=== PATIENT | male | born 1965 | race Hispanic/Latino ===

== ENCOUNTER 2018-08-30 20:23 | Emergency (ER) | payer SELFPAY ==
[2018-08-30 20:50] VITALS: TEMP 98; O2SAT 98
[2018-08-30] MEDS ORDERED: CHLORHEXIDINE GLUCONATE 4 % 15 ML UD TOP ONE ×2 (20:53→22:21)
[2018-08-30] MEDS ORDERED: TETANUS-DIPHTHERIA TOXOIDS (TD 1 EA SYG IM ONE (21:03)
[2018-08-30] MEDS ORDERED: LIDOCAINE 1% 10 ML VIAL INJ ONE (21:21)
--- NOTE | 2018-08-30 21:59 | ED.PDOC ---
History of Present Illness - General Chief Complaint: Laceration Stated Complaint: laceration to left hand Time Seen by Provider: 08/30/18 20:56 Source: patient Exam Limitations: no limitations - History of Present Illness Initial Comments: CUT WITH POCKET KNIFE INSURANCE VERIFY REP, UNKNOWN TETANUS STATUS. Severity: mild Location: hands - L HAND WEB SPACE BETWEEN THUMB AND INDEX FINGER Allergies/Adverse Reactions: Allergies NO KNOWN ALLERGY Allergy (Verified 08/30/18 20:50) Home Medications: Ambulatory Orders NK 08/30/18 Review of Systems - Review of Systems Constitutional: States: no symptoms reported Musculoskeletal: Denies: back pain Skin: States: other - LACERATION Neurological: Denies: numbness, weakness Endocrine: States: no symptoms reported Hematologic/Lymphatic: States: no symptoms reported Past Medical History (General) - Patient Medical History Hx Seizures: No Hx Stroke: No Hx Dementia: No Hx Asthma: No Hx of COPD: No Hx Cardiac Disorders: No Hx Congestive Heart Failure: No Hx Pacemaker: No Hx Hypertension: Yes Hx Thyroid Disease: No Hx Diabetes: Yes Hx Gastroesophageal Reflux: No Hx Renal Disease: No Hx Cancer: No Hx of HIV: No Hx Hepatitis C: No Hx MRSA: No Surgical History: no surgical history - Vaccination History Hx Tetanus, Diphtheria Vaccination: No - unknown Hx Influenza Vaccination: No Hx Pneumococcal Vaccination: No - Social History Hx Tobacco Use: Yes Hx Alcohol Use: No Family Medical History - Family History Mother Family History: Unknown Physical Exam - Physical Exam General Appearance: Alert, No apparent distress Eyes, Ears, Nose, Throat Exam: PERRL/EOMI, normal ENT inspection Extremity: other - SMALL LACERATION WEB SPACE BETWEEN THUMB AND INDEX FINGER. JUST INTO SUBQ, Neurologic: no motor/sensory deficits Procedures - Laceration/Wound Repair Left Hand Wound Length (cm): 2.5 Wound's Depth, Shape: linear Wound Explored: clean Betadine Prep?: No - HIBICLEANSE Anesthesia: 1% Lidocaine Wound Repaired With: sutures Suture Size/Type: 4:0, prolene Layer Closure?: No Deep Layer Suture Size/Type: 4:0 - RUNNING Sterile Dressing Applied?: Yes Departure - Departure Clinical Impression: Laceration of hand Qualifiers: Encounter type: initial encounter Foreign body presence: without foreign body Laterality: left Qualified Code(s): S61.412A - Laceration without foreign body of left hand, initial encounter Time of Disposition: 22:45 Disposition: Discharge to Home or Self Care Condition: Good Departure Forms: ED Discharge - Pt. Copy, Patient Portal Self Enrollment Instructions: DI for Laceration Repair Home Medications: Ambulatory Orders NK 08/30/18 Additional Instructions: SUTURE REMOVAL 7 DAYS
[2018-08-30] MEDS ORDERED: NEOMYCIN-BACITRACIN-POLYMYXIN 0.9 GM UD TOP ONE (22:52)
[2018-08-30 23:35] VITALS: BP 124/82
== END 2018-08-30 23:10 | disposition home or self-care (01) ==
LOC: ER 20:23
DX: S61.412A Laceration without foreign body of left hand, initial encounter (principal); I10 Essential (primary) hypertension; E11.9 Type 2 diabetes mellitus without complications; W26.0XXA Contact with knife, initial encounter; Z87.891 Personal history of nicotine dependence; Y92.9 Unspecified place or not applicable